=== PATIENT | female | born 1965 | race Caucasian/White ===

== ENCOUNTER → 2018-07-11 | Outpatient (REF) | payer OTHER ==
[2018-07-11 13:29] LABS: BASO # 0.1 10^3/uL (0.0-0.2); EOS # 0.3 10^3/uL (0.0-0.50); EOS % 3.9 % (0.0-3.0); HEMATOCRIT 45.9 % (36.0-47.0); HEMOGLOBIN 15.6 g/dl (12.0-15.5); LYMPH # 2.8 10^3/uL (1.5-4.5); LYMPH % 35.3 % (24.0-44.0); MEAN CORPUSCULAR HEMOGLOBIN 32.9 pg (27.0-33.0); MEAN CORPUSCULAR VOLUME 96.8 fl (80.0-96.0); MONO # 0.5 10^3/uL (0.0-0.8); MONO % 6.1 % (0.0-5.0); NEUTROPHILS # 4.3 10^3/uL (1.8-7.7); NEUTROPHILS % 53.5 % (36.0-66.0); PLATELET COUNT, AUTOMATED 325 10^3/uL (150-450); RED BLOOD COUNT 4.74 10^6/uL (4.00-5.40); WHITE BLOOD COUNT 8.1 10^3/uL (4.0-10.0)
[2018-07-11 13:57] LABS: MONO SCRN NEGATIVE (NEGATIVE)
[2018-07-19 00:15] LABS: EBV AB TO NUCLEAR ANTIGEN <18.0 U/mL (0.0-17.9); EBV VIRAL CAPSID AG IgG >600.0 U/mL (0.0-17.9); EBV VIRAL CAPSID AG IgM <36.0 U/mL (0.0-35.9)
== END ==
LOC: M LAB REF 13:03
PROVIDERS: ATTEND Physician Assistant Medical
DX: J02.9 Acute pharyngitis, unspecified (principal)

== ENCOUNTER → 2019-02-05 | Outpatient (CLI) | payer OTHER ==
--- NOTE | 2019-02-05 10:04 | REPMRS ---
Patient History The patient states she has not had a clinical breast exam in over a year. Patient is nulliparous. No known family history of cancer. No Hormone Replacement Therapy Digital Woman Screen Mammo: February 05, 2019 - Exam #: [id number] Bilateral CC and MLO view(s) were taken. Technologist: Maris Holliday, Technologist Prior study comparison: November 2017, bilateral digital mammo screening bilat, performed at [facility]. November 09, 2016, bilateral digital woman screen mammo, performed at [facility]. FINDINGS: There are scattered fibroglandular densities. There has been no change in the appearance of the mammogram from the prior studies. There is a mild amount of scattered fibroglandular density which is fairly symmetric. There is no interval development of dominant mass, architectural distortion, or grouped microcalcification suggestive of malignancy. Assessment: BI-RADS/ACR category 2 mammogram. Benign Findings. Recommendation Routine screening mammogram of both breasts in 1 year (for women over age 40). This patient's Lifetime Breast Cancer RIsk is estimated at 11.3 %. This mammogram was interpreted with the aid of an FDA-approved computer-aided dectection system. Electronically Signed By: Akhil Floyd MD 02/05/19 [id number]
== END ==
LOC: M WHC 09:26
PROVIDERS: ATTEND Internal Medicine
DX: Z12.31 Encounter for screening mammogram for malignant neoplasm of breast (principal)

== ENCOUNTER → 2020-12-08 | Outpatient (CLI) | payer OTHER ==
--- NOTE | 2020-12-08 08:52 | REP ---
INDICATION: EVAL FOR FATTY LIVER COMPARISON: None. TECHNIQUE: Real time paris scale ultrasound examination using curved array transducer. FINDINGS: Liver is hyperechoic without focal hepatic lesion identified and normal in size. Pancreas is incompletely evaluated due to interposed bowel gas. The gallbladder is normal and without gallstones, wall thickening, or pericholecystic fluid. No biliary ductal dilatation is appreciated and the common bile duct measures 4.4 mm diameter. Right kidney is normal in reniform shape without hydronephrosis and measures 12.1 x 5.8 x 5.2 cm. No ascites in the visualized right upper quadrant. IMPRESSION: Hepatosteatosis. <Electronically signed by Dino Reddy > 12/08/20 [id number]
== END ==
LOC: M RAD 08:10
PROVIDERS: ATTEND Internal Medicine
DX: K76.0 Fatty (change of) liver, not elsewhere classified (principal); R74.01 Elevation of levels of liver transaminase levels

== ENCOUNTER → 2021-07-06 | Outpatient (CLI) | payer OTHER | LOC: M ADAMS 15:22 | PROVIDERS: ATTEND Physician Assistant | DX: M43.02 Spondylolysis, cervical region (principal); Z98.1 Arthrodesis status; S13.140A Subluxation of C3/C4 cervical vertebrae, initial encounter; X58.XXXA Exposure to other specified factors, initial encounter ==

== ENCOUNTER → 2021-07-25 | Outpatient (REF) | payer OTHER | LOC: M LAB REF 19:10 | PROVIDERS: ATTEND Internal Medicine | DX: R30.0 Dysuria (principal) ==

== ENCOUNTER → 2021-08-11 | Outpatient (CLI) | payer OTHER | LOC: M PLARAD 14:26 | PROVIDERS: ATTEND Orthopaedic Surgery | DX: M47.812 Spondylosis without myelopathy or radiculopathy, cervical region (principal); M43.22 Fusion of spine, cervical region ==

== ENCOUNTER → 2021-10-19 | Outpatient (CLI) | payer OTHER | LOC: M WHC 15:43 | PROVIDERS: ATTEND Internal Medicine | DX: Z12.31 Encounter for screening mammogram for malignant neoplasm of breast (principal); R92.8 Other abnormal and inconclusive findings on diagnostic imaging of breast ==

== ENCOUNTER → 2021-10-25 | Outpatient (CLI) | payer OTHER | LOC: M WHC 13:05 | PROVIDERS: ATTEND Internal Medicine | DX: R92.2 Inconclusive mammogram (principal) | CPT/HCPCS: 77065; G0279 ==

== ENCOUNTER → 2022-01-09 | Outpatient (CLI) | payer OTHER | LOC: M PLAIMG 14:11 | PROVIDERS: ATTEND Orthopaedic Surgery | DX: M47.22 Other spondylosis with radiculopathy, cervical region (principal) ==

== ENCOUNTER → 2022-02-21 | Outpatient (REF) | payer OTHER ==
[2022-02-21 18:03] LABS: HEMATOCRIT 47.1 % (36.0-47.0); HEMOGLOBIN 15.9 g/dl (12.0-15.5); MEAN CORPUSCULAR HEMOGLOBIN 32.4 pg (27.0-33.0); MEAN CORPUSCULAR HGB CONC 33.8 g/dl (32.0-36.5); MEAN CORPUSCULAR VOLUME 95.9 fl (80.0-96.0); PLATELET COUNT, AUTOMATED 268 10^3/uL (150-450); RED BLOOD COUNT 4.91 10^6/uL (4.00-5.40); WHITE BLOOD COUNT 10.9 10^3/uL (4.0-10.0)
[2022-02-21 18:27] LABS: ALBUMIN 4.1 G/DL (3.2-5.2); ALKALINE PHOSPHATASE 66 U/L (46-116); ALT/SGPT 197 U/L (7.0-40); AST/SGOT 127 U/L (<34); BILIRUBIN,TOTAL 0.6 MG/DL (0.3-1.2); BLOOD UREA NITROGEN 17 MG/DL (9-23); CALCIUM LEVEL 9.8 MG/DL (8.5-10.1); CARBON DIOXIDE LEVEL 26 MMOL/L (20-31); CHLORIDE LEVEL 99 MMOL/L (98-107); CREATININE FOR GFR 0.68 MG/DL (0.55-1.30); GLOMERULAR FILTRATION RATE > 60.0 (>51); GLUCOSE, FASTING 103 MG/DL (60-100); POTASSIUM SERUM 4.2 MMOL/L (3.5-5.1); SODIUM LEVEL 138 MMOL/L (136-145); TOTAL PROTEIN 7.5 G/DL (5.7-8.2)
== END ==
LOC: M LABDRWAD 16:28
PROVIDERS: ATTEND Internal Medicine
DX: Z01.818 Encounter for other preprocedural examination (principal)

== ENCOUNTER → 2022-02-22 | Outpatient (CLI) | payer OTHER | LOC: M LABDRWAD 14:21 | PROVIDERS: ATTEND Internal Medicine | DX: R74.01 Elevation of levels of liver transaminase levels (principal) ==

== ENCOUNTER → 2022-02-28 | Outpatient (CLI) | payer OTHER ==
[~2022-02-28] MED LIST: CYCL-707 PO; GABA600T4 PO; JARD1TAB PO; LEXA1TAB2 PO; LISI10TA24 PO; PANT40TA29 PO; SIMV20TA22 PO; ZYRT10TA12 PO
== END ==
LOC: M LABSMTC 09:15
PROVIDERS: ATTEND Anesthesiology
DX: Z01.812 Encounter for preprocedural laboratory examination (principal); Z11.52 Encounter for screening for COVID-19

== ENCOUNTER 2022-03-05 06:14 | Observation (INO) | payer OTHER ==
[~2022-03-05] VITALS: Ht 157.5 cm; Wt 78.0 kg
[~2022-03-05 06:14] MED LIST changes: +TRANEXAMIC ACID INJection 1,000 MG in NS 100 ML IV ONE; +ceFAZolin SOD 2 GM in IV 1 EA IV ONE; +oxyCODONE 5MG TAB PO ONE
[2022-03-05] MEDS ORDERED: LR 1,000 ML IV SCH ×2 (07:05→12:20)
[2022-03-05] MEDS ORDERED: KETAMINE HCL 200MG/20ML VIAL As Ordered ONE (07:13)
[2022-03-05] MEDS ORDERED: propofoL 200 MG/20 ML VIAL As Ordered ONE (07:14)
[2022-03-05] MEDS ORDERED: MIDAZOLAM INJ 2MG/2ML VIAL As Ordered ONE (07:14)
[2022-03-05] MEDS ORDERED: LIDOCAINE 2% 100MG/5ML SDV (FOR ANES.) As Ordered ONE (07:14)
[2022-03-05] MEDS ORDERED: fentaNYL 100 MCG/2 ML INJECTION As Ordered ONE (07:14)
[2022-03-05] MEDS ORDERED: ROCURONIUM BROMIDE 50MG/5ML VIAL As Ordered ONE (07:14)
[2022-03-05] MEDS ORDERED: HYDROmorphone HCL 2MG/ML 1ML VIAL As Ordered ONE (07:14)
[2022-03-05] MEDS ORDERED: ONDANSETRON 4MG 2ML VIAL As Ordered ONE (07:14)
[2022-03-05] MEDS ORDERED: PHENYLEPHRINE 10MG/ML 1ML VIAL As Ordered ONE (07:14)
[2022-03-05] MEDS ORDERED: THROMBIN 20,000 UNITS KIT As Ordered ONE (07:21)
[2022-03-05] MEDS ORDERED: TRANEXAMIC ACID 100 MG/ML 10ML VIAL As Ordered ONE ×2 (07:21→07:22)
[2022-03-05] MEDS ORDERED: BUPIVACAINE/EPIN 0.5% 30ML VIAL As Ordered ONE (07:21)
[2022-03-05] MEDS ORDERED: BUPIVACAINE HCL 0.5% 30ML VIAL As Ordered ONE (07:22)
[2022-03-05] MEDS ORDERED: propofoL 500 MG/50 ML VIAL As Ordered ONE ×5 (07:33→11:30)
[2022-03-05] MEDS ORDERED: SUCCINYLCHOLINE 100MG/5ML SYRINGE As Ordered ONE (07:36)
[2022-03-05] MEDS ORDERED: ACETAMINOPHEN 1000MG 100ML IV BAG As Ordered ONE (08:16)
[2022-03-05] MEDS ORDERED: fentaNYL 100 MCG/2 ML INJECTION IV PRN (12:20)
[2022-03-05] MEDS ORDERED: oxyCODONE 5MG TAB PO PRN (12:20)
[2022-03-05] MEDS ORDERED: ONDANSETRON 4MG 2ML VIAL IV PRN (12:20)
[2022-03-05] MEDS ORDERED: HYDROMORPHONE HCL 0.5 MG/ 0.5 ML SYRINGE IV PRN (12:20)
[2022-03-05] MEDS ORDERED: ePHEDrine SULFATE 25 MG/5 ML(5MG/ML) SYRINGE As Ordered ONE (12:29)
[2022-03-05] MEDS ORDERED: NALOXONE INJ 0.4MG/1ML VIAL As Ordered ONE (12:45)
[2022-03-05] MEDS ORDERED: ACETAMINOPHEN TAB 650MG DOSE (2X325MG) PO PRN (12:45)
[2022-03-05] MEDS ORDERED: DEXTROSE 50% 50ML SYRINGE IV PRN (12:55)
[2022-03-05] MEDS ORDERED: GLUCOSE 4GM CHEW TABLET PO PRN (12:55)
[2022-03-05] MEDS ORDERED: GLUCAGON INJ 1MG VIAL SC PRN (12:55)
[2022-03-05 15:00] VITALS: BP 122/66
[2022-03-05 15:30] VITALS: BP 121/85
[2022-03-05] MEDS: GABAPENTIN 300 MG CAP PO SCH ×2 (15:40→21:06)
[2022-03-05] MEDS: ceFAZolin SOD 2 GM in IV 1 EA IV SCH ×2 (15:40→23:58)
[2022-03-05 16:30] VITALS: BP 125/85
[2022-03-05] MEDS: INSULIN LISPRO (NovoLOG) PER UNIT SC SCH (17:18)
[2022-03-05] MEDS ORDERED: VENL75CA47 PO (17:21)
[2022-03-05] MEDS ORDERED: ACET-897 PO (17:21)
[2022-03-05] MEDS ORDERED: HOME MED LIST COMPLETE! XX SCH (17:25)
[2022-03-05 17:30] VITALS: BP 135/87
[2022-03-05 18:30] VITALS: BP 127/88
[2022-03-05] MEDS: PERCOCET 5MG/325MG TAB PO PRN (21:06)
[2022-03-05 22:00] VITALS: BP 123/83
[2022-03-05] MEDS: MORPHINE 4 MG/ML 1ML VIAL IV PRN (23:05)
[2022-03-06 02:00] VITALS: BP 123/69
[2022-03-06] MEDS: MORPHINE 4 MG/ML 1ML VIAL IV PRN (02:54)
[2022-03-06 05:13] VITALS: BP 135/83
[2022-03-06 06:28] LABS: HEMATOCRIT 41.1 % (36.0-47.0); HEMOGLOBIN 13.5 g/dl (12.0-15.5); MEAN CORPUSCULAR HEMOGLOBIN 32.5 pg (27.0-33.0); MEAN CORPUSCULAR HGB CONC 32.8 g/dl (32.0-36.5); MEAN CORPUSCULAR VOLUME 98.8 fl (80.0-96.0); PLATELET COUNT, AUTOMATED 214 10^3/uL (150-450); RED BLOOD COUNT 4.16 10^6/uL (4.00-5.40); WHITE BLOOD COUNT 13.2 10^3/uL (4.0-10.0)
[2022-03-06 06:38] LABS: INR 1.17; PROTHROMBIN TIME 15.1 SECONDS (12.5-14.5)
[2022-03-06 06:53] LABS: ALBUMIN 3.3 G/DL (3.2-5.2); ALKALINE PHOSPHATASE 54 U/L (46-116); ALT/SGPT 98 U/L (7.0-40); AST/SGOT 60 U/L (<34); BILIRUBIN,TOTAL 0.3 MG/DL (0.3-1.2); BLOOD UREA NITROGEN 11 MG/DL (9-23); CALCIUM LEVEL 8.8 MG/DL (8.5-10.1); CARBON DIOXIDE LEVEL 28 MMOL/L (20-31); CHLORIDE LEVEL 101 MMOL/L (98-107); CREATININE FOR GFR 0.64 MG/DL (0.55-1.30); GLOMERULAR FILTRATION RATE > 60.0 (>51); GLUCOSE, FASTING 178 MG/DL (60-100); PHOSPHORUS LEVEL 3.2 MG/DL (2.5-4.9); POTASSIUM SERUM 4.2 MMOL/L (3.5-5.1); SODIUM LEVEL 138 MMOL/L (136-145); TOTAL PROTEIN 6.5 G/DL (5.7-8.2)
[2022-03-06] MEDS: GABAPENTIN 300 MG CAP PO SCH (08:01)
[2022-03-06] MEDS: INSULIN LISPRO (NovoLOG) PER UNIT SC SCH ×2 (08:01→12:00)
[2022-03-06 08:02] VITALS: BP 128/76
[2022-03-06] MEDS: PERCOCET 5MG/325MG TAB PO PRN (08:02)
[2022-03-06] MEDS ORDERED: hydroCHLOROthiazide 12.5 MG CAPSULE PO SCH (09:00)
[2022-03-06] MEDS ORDERED: PERCOCET PO (09:05)
[2022-03-06] MEDS ORDERED: diphenhydrAMINE 25MG CAP PO ONE (10:10)
[2022-03-06] MEDS ORDERED: MORP20SO PO (11:02)
[2022-03-06] MEDS ORDERED: MORP-69 PO (11:05)
== END 2022-03-06 13:40 | disposition home or self-care (01) ==
LOC: M SDC 06:14 → M MS5PR 06:15
PROVIDERS: ADMIT Orthopaedic Surgery; ATTEND Orthopaedic Surgery
DX: M54.13 Radiculopathy, cervicothoracic region (principal)
CPT/HCPCS: 22551; 22552; 22845; 36415; 76000; 80053; 80069; 85027; 85610; 93005; 96365; 96366; 96375; 96376; 97161; 97165; 97530; C1713; C1762; J0330; J1100; J2370; J2405

== ENCOUNTER → 2022-03-09 | Outpatient (CLI) | payer OTHER ==
[~2022-03-09] MED LIST changes: +ACET-897 PO; +MORP-69 PO; +MORP20SO PO; +PERCOCET PO; -TRANEXAMIC ACID INJection 1,000 MG in NS 100 ML IV ONE; +VENL75CA47 PO; -ceFAZolin SOD 2 GM in IV 1 EA IV ONE; -oxyCODONE 5MG TAB PO ONE
== END ==
LOC: M SOG 08:25
PROVIDERS: ATTEND Orthopaedic Surgery
DX: M47.22 Other spondylosis with radiculopathy, cervical region (principal); M50.31 Other cervical disc degeneration, high cervical region

== ENCOUNTER → 2022-03-30 | Outpatient (CLI) | payer OTHER | LOC: M SOG 08:04 | PROVIDERS: ATTEND Orthopaedic Surgery | DX: M43.22 Fusion of spine, cervical region (principal) ==

== ENCOUNTER → 2022-07-09 | Outpatient (CLI) | payer OTHER | LOC: M SOG 12:39 | PROVIDERS: ATTEND Orthopaedic Surgery | DX: Z47.89 Encounter for other orthopedic aftercare (principal); Z97.8 Presence of other specified devices ==

== ENCOUNTER → 2022-10-16 | Outpatient (REF) | payer OTHER | LOC: M SFHCDERM 17:34 | PROVIDERS: ATTEND Nurse Practitioner Family | DX: L40.9 Psoriasis, unspecified (principal) | CPT/HCPCS: 11102; 11105; 11200; 88305; G0463 ==

== ENCOUNTER → 2022-12-06 | Outpatient (REF) | payer OTHER ==
[2022-12-06 14:52] LABS: BASO # 0.1 10^3/uL (0.0-0.2); BASO % 0.9 % (0.0-1.0); EOS # 0.2 10^3/uL (0.0-0.5); EOS % 1.6 % (0.0-3.0); HEMATOCRIT 47.2 % (36.0-47.0); HEMOGLOBIN 15.5 g/dl (12.0-15.5); LYMPH # 2.9 10^3/uL (1.5-5.0); LYMPH % 27.3 % (24.0-44.0); MEAN CORPUSCULAR HEMOGLOBIN 32.4 pg (27.0-33.0); MEAN CORPUSCULAR HGB CONC 32.8 g/dl (32.0-36.5); MEAN CORPUSCULAR VOLUME 98.5 fl (80.0-96.0); MONO # 0.8 10^3/uL (0.0-0.8); MONO % 7.7 % (2.0-8.0); NEUTROPHILS # 6.4 10^3/uL (1.5-8.5); NEUTROPHILS % 61.4 % (36.0-66.0); PLATELET COUNT, AUTOMATED 254 10^3/uL (150-450); RED BLOOD COUNT 4.79 10^6/uL (4.00-5.40); WHITE BLOOD COUNT 10.4 10^3/uL (4.0-10.0)
[2022-12-12 10:23] LABS: ALBUMIN 4.3 G/DL (3.9-4.9); ALKALINE PHOSPHATASE 69 IU/L (44-121); ALT/SGPT 97 IU/L (0-32); AST/SGOT 112 IU/L (0-40); BILIRUBIN,TOTAL < 0.2 MG/DL (0.0-1.2); BLOOD UREA NITROGEN 15 MG/DL (8-27); CALCIUM LEVEL 10.2 MG/DL (8.7-10.3); CARBON DIOXIDE LEVEL 18 mmol/L (20-29); CHLORIDE LEVEL 103 mmol/L (96-106); GLOMERULAR FILTRATION RATE > 60.0 (>59); POTASSIUM SERUM 4.9 mmol/L (3.5-5.2); SODIUM LEVEL 142 mmol/L (134-144)
[2022-12-12 10:24] LABS: HEPATITIS B CORE ANTIBODY IGM NEGATIVE (NEGATIVE)
[2022-12-12 10:31] LABS: GLUCOSE, FASTING 151 MG/DL (70-99)
[2022-12-12 10:35] LABS: HIV 1&2 SCREEN NON REACTIVE (NEGATIVE)
== END ==
LOC: M LABDRWAD 13:06
PROVIDERS: ATTEND Nurse Practitioner Family
DX: L40.9 Psoriasis, unspecified (principal)
CPT/HCPCS: 36415; 80053; 85025; 86480; 86705; 86709; 86803; 87340; 87389; G0463

== ENCOUNTER → 2023-01-04 | Outpatient (CLI) | payer OTHER | LOC: M SOG 07:54 | PROVIDERS: ATTEND Orthopaedic Surgery | DX: M54.2 Cervicalgia (principal) | CPT/HCPCS: 72040; G0463 ==

== ENCOUNTER → 2023-03-13 | Outpatient (CLI) | payer OTHER | LOC: M SOG 07:55 | PROVIDERS: ATTEND Orthopaedic Surgery | DX: M54.6 Pain in thoracic spine (principal); M54.50 Low back pain, unspecified; M47.896 Other spondylosis, lumbar region; M47.897 Other spondylosis, lumbosacral region; M41.84 Other forms of scoliosis, thoracic region ==

== ENCOUNTER → 2023-07-10 | Outpatient (CLI) | payer OTHER | LOC: M WHC 11:03 | PROVIDERS: ATTEND Internal Medicine | DX: Z12.31 Encounter for screening mammogram for malignant neoplasm of breast (principal) ==

== ENCOUNTER → 2023-12-12 | Outpatient (CLI) | payer OTHER ==
[~2023-12-12] MED LIST changes: +GABA-1490 PO; -GABA600T4 PO
== END ==
LOC: M SOG 07:24
PROVIDERS: ATTEND Orthopaedic Surgery
DX: M43.22 Fusion of spine, cervical region (principal); M40.294 Other kyphosis, thoracic region; Z53.9 Procedure and treatment not carried out, unspecified reason